=== PATIENT | female | born 1930 ===

== ENCOUNTER 2018-03-18 17:26 | Emergency (ER) | payer OTHER ==
[~2018-03-18] VITALS: Ht 144.8 cm; Wt 46.7 kg
[~2018-03-18 17:26] MED LIST: FLEXERIL10 MG PO; HYZAAR 50/12.51 TAB; SYNTHROID50 MCG; ZOCOR20 MG
== END 2018-03-18 20:12 | disposition home or self-care (01) ==
LOC: ER 17:26
DX: S60.512A Abrasion of left hand, initial encounter (principal); W55.03XA Scratched by cat, initial encounter; Y93.89 Activity, other specified; Y92.89 Other specified places as the place of occurrence of the external cause; Y99.8 Other external cause status

== ENCOUNTER 2018-06-12 08:19 | Outpatient (CLI) | payer OTHER | END 2018-06-12 14:40 | disposition home or self-care (01) | LOC: LAB 08:19 | DX: D50.8 Other iron deficiency anemias (principal); E03.8 Other specified hypothyroidism; E78.2 Mixed hyperlipidemia; I11.9 Hypertensive heart disease without heart failure; E56.8 Deficiency of other vitamins; N39.0 Urinary tract infection, site not specified; Z12.11 Encounter for screening for malignant neoplasm of colon; R19.5 Other fecal abnormalities; E55.9 Vitamin D deficiency, unspecified; N19 Unspecified kidney failure; E11.9 Type 2 diabetes mellitus without complications; R80.8 Other proteinuria; C18.0 Malignant neoplasm of cecum; K92.1 Melena ==

== ENCOUNTER 2018-09-04 08:38 | Outpatient (CLI) | payer OTHER | END 2018-09-04 08:48 | disposition home or self-care (01) | LOC: LAB 08:38 | DX: D50.8 Other iron deficiency anemias (principal); E03.8 Other specified hypothyroidism; E78.2 Mixed hyperlipidemia; I11.9 Hypertensive heart disease without heart failure; E56.8 Deficiency of other vitamins; N39.0 Urinary tract infection, site not specified; Z12.11 Encounter for screening for malignant neoplasm of colon; N19 Unspecified kidney failure; E11.9 Type 2 diabetes mellitus without complications; R80.8 Other proteinuria; K92.1 Melena ==

== ENCOUNTER 2018-09-27 13:23 | Outpatient (CLI) | payer OTHER | END 2018-09-27 13:42 | disposition home or self-care (01) | LOC: NUCLEAR 13:23 | DX: M81.0 Age-related osteoporosis without current pathological fracture (principal) ==

== ENCOUNTER 2018-11-04 10:34 | Emergency (ER) | payer OTHER ==
[~2018-11-04] VITALS: Ht 147.3 cm; Wt 52.2 kg
[2018-11-04] MEDS ORDERED: VITAMIN D400 UNI2 (12:08)
[2018-11-04] MEDS ORDERED: VITAMIN E200 UNI2 (12:08)
== END 2018-11-04 14:55 | disposition home or self-care (01) ==
LOC: ER 10:34
DX: M19.011 Primary osteoarthritis, right shoulder (principal); M25.511 Pain in right shoulder

== ENCOUNTER 2018-12-05 08:14 | Outpatient (CLI) | payer OTHER ==
[~2018-12-05 08:14] MED LIST changes: +VITAMIN D400 UNI2; +VITAMIN E200 UNI2
== END 2018-12-05 15:00 | disposition home or self-care (01) ==
LOC: LAB 08:14
DX: D50.8 Other iron deficiency anemias (principal); E03.8 Other specified hypothyroidism; E78.2 Mixed hyperlipidemia; I11.9 Hypertensive heart disease without heart failure; D56.8 Other thalassemias; N39.0 Urinary tract infection, site not specified; Z12.11 Encounter for screening for malignant neoplasm of colon; E55.9 Vitamin D deficiency, unspecified; N19 Unspecified kidney failure; E11.9 Type 2 diabetes mellitus without complications; R80.8 Other proteinuria; C18.0 Malignant neoplasm of cecum; K92.1 Melena

== ENCOUNTER 2019-03-21 08:35 | Outpatient (CLI) | payer OTHER | END 2019-03-21 08:41 | disposition home or self-care (01) | LOC: LAB 08:35 | DX: D50.8 Other iron deficiency anemias (principal); E03.8 Other specified hypothyroidism; E78.2 Mixed hyperlipidemia; I11.9 Hypertensive heart disease without heart failure; E56.8 Deficiency of other vitamins; N39.0 Urinary tract infection, site not specified; Z12.11 Encounter for screening for malignant neoplasm of colon; E55.9 Vitamin D deficiency, unspecified; N19 Unspecified kidney failure; E11.9 Type 2 diabetes mellitus without complications; R80.8 Other proteinuria; K92.1 Melena ==